=== PATIENT | male | born 2005 | race Caucasian/White ===

== ENCOUNTER 2024-02-09 18:02 | Emergency (ER) | payer SELFPAY ==
[~2024-02-09] VITALS: Ht 182.9 cm; Wt 83.0 kg
[2024-02-09 18:09] VITALS: O2SAT 100
[2024-02-09] MEDS: IBUPROFEN 400MG TABLET PO ONE (19:42)
[2024-02-09] MEDS ORDERED: IBUP-2028 MT (20:43)
[2024-02-09 21:30] VITALS: BP 118/66; PULSE 70; RESP 14; TEMP 98.2
== END 2024-02-09 21:32 | disposition home or self-care (01) ==
LOC: ER 18:02
DX: M25.561 Pain in right knee (principal); M25.571 Pain in right ankle and joints of right foot; W18.39XA Other fall on same level, initial encounter; Y93.89 Activity, other specified; Y92.89 Other specified places as the place of occurrence of the external cause; Y99.8 Other external cause status
CPT/HCPCS: 73560; 73590; 73610; 99284